=== PATIENT | female | born 1965 | race Caucasian/White ===

== ENCOUNTER 2017-02-10 09:53 | Outpatient (CLI) | payer OTHER ==
[2017-02-10 16:41] LABS: ALT (SGPT) 15 U/L (8-55); AST (SGOT) 21 U/L (5-34); Albumin 4.5 g/dL (3.5-5.0); Alkaline Phosphatase 61 U/L (40-150); Anion Gap 14 mmol/L (10-20); BUN (Urea Nitrogen) 6 mg/dL (9.8-20.1); Bilirubin, Total 0.5 mg/dL (0.2-1.2); Calc. Creatinine Clearance 0 mL/min (70-130); Calcium 9.7 mg/dL (7.8-10.44); Carbon Dioxide 26 mmol/L (22-29); Cardiac Risk 3.6 (Less than 4.5); Chloride 108 mmol/L (98-107); Cholesterol 181 mg/dl (< 200 Desired); Estimated GFR-MDRD 68; Globulin 2.8 g/dL (2.4-3.5); Glucose 92 mg/dL (70-105); HDL Cholesterol 50 mg/dL (>60 Neg Risk); LDL Cholesterol, Calculated 94 mg/dL; Potassium 5.8 mmol/L (3.5-5.1); Protein, Total 7.3 g/dL (6.0-8.3); Sodium 142 mmol/L (136-145); Triglycerides 184 mg/dL (Less than 150)
== END 2017-02-10 09:54 | disposition home or self-care (01) ==
LOC: LABLEX 09:53
PROVIDERS: ATTEND Nurse Practitioner
DX: I10 Essential (primary) hypertension (principal)
CPT/HCPCS: 80053; 80061; 84443

== ENCOUNTER 2017-06-27 11:57 | Outpatient (CLI) | payer OTHER ==
--- NOTE | 2017-06-27 13:43 | RAD ---
LUMBAR SPINE 3 VIEWS: Date: 06/27/17 FINDINGS: There is minor curvature of the spine convex right. No fracture, dislocation, or disc space narrowing seen. There is no significant degenerative change. The SI joints are symmetrical. IMPRESSION: No acute bony findings. POS: HOME
--- NOTE | 2017-06-27 13:44 | RAD ---
LEFT HIP 2 VIEWS: Date: 06/27/17 FINDINGS: No fracture, dislocation, or joint space narrowing seen. The articular surfaces are smooth. The adjac ent pubic ring appears intact. IMPRESSION: No significant findings. POS: HOME
== END 2017-06-27 11:58 | disposition home or self-care (01) ==
LOC: BURRAD 11:57
PROVIDERS: ATTEND Nurse Practitioner
DX: M25.552 Pain in left hip (principal)
CPT/HCPCS: 72100

== ENCOUNTER 2022-10-07 11:32 | Outpatient (CLI) | payer OTHER | END 2022-10-07 11:33 | disposition home or self-care (01) | LOC: BURRAD 11:32 | PROVIDERS: ATTEND Nurse Practitioner | DX: T18.9XXA Foreign body of alimentary tract, part unspecified, initial encounter (principal) | CPT/HCPCS: 74022 ==

== ENCOUNTER 2022-10-11 11:06 | Outpatient (CLI) | payer OTHER | END 2022-10-11 11:07 | disposition home or self-care (01) | LOC: BURRAD 11:06 | PROVIDERS: ATTEND Nurse Practitioner | DX: T18.9XXA Foreign body of alimentary tract, part unspecified, initial encounter (principal) | CPT/HCPCS: 74019 ==

== ENCOUNTER 2022-10-12 10:44 | Emergency (ER) | payer OTHER | END 2022-10-12 12:22 | disposition home or self-care (01) | LOC: BURERS 10:44 | DX: T18.2XXA Foreign body in stomach, initial encounter (principal) | CPT/HCPCS: 74176 ==

== ENCOUNTER 2022-10-14 17:36 | Outpatient (CLI) | payer OTHER | END 2022-10-14 17:37 | disposition home or self-care (01) | LOC: BURRAD 17:36 | PROVIDERS: ATTEND Physician Assistant Medical | DX: T18.2XXA Foreign body in stomach, initial encounter (principal); Z98.890 Other specified postprocedural states | CPT/HCPCS: 74018 ==